=== PATIENT | female | born 1945 | race Caucasian/White ===

== ENCOUNTER → 2016-08-01 | Outpatient (CLI) | payer MEDICARE, BC ==
[~2016-08-01] MED LIST: ALEVE220 MG PO; PRILOSEC OTC20 MG PO
== END ==
LOC: GRAD 10:27
DX: M76.822 Posterior tibial tendinitis, left leg (principal); Z53.8 Procedure and treatment not carried out for other reasons

== ENCOUNTER → 2016-08-02 | Outpatient (CLI) | payer MEDICARE, BC | END | disposition disaster alternative care site (69) | LOC: GRAD 11:13 | DX: M76.822 Posterior tibial tendinitis, left leg (principal); M65.872 Other synovitis and tenosynovitis, left ankle and foot ==